=== PATIENT | female | born 1970 | race Caucasian/White ===

== ENCOUNTER 2017-01-12 12:12 | Emergency (ER) | payer OTHER ==
[~2017-01-12] VITALS: Ht 170.2 cm; Wt 85.8 kg
[~2017-01-12 12:12] MED LIST: AMOXICILLIN; COUMADIN,JANTO7.5 MG; COUMADIN,JANTOVE5 MG; EYE DROPS
[2017-01-12 13:20] LABS: MCH 31.4 PG (29.0-34.0); MCHC 34.3 G/DL (30.0-36.0); MCV 91.7 FL (83-99); MEAN PLAT.VOLUME 9.6 uM^3 (9.5-12.4); PLATELET COUNT 270 K/uL (156-360); RBC DIS.WIDTH-CV 12.1 % (11.8-14.6); RBC DIS.WIDTH-SD 40.7 % (39-53); RED BLOOD COUNT 4.58 M/uL (3.80-5.20); WHITE BLOOD COUNT 10.5 K/uL (4.1-10.2)
[2017-01-12 13:25] LABS: ADD MIUA? YES; BILIRUBIN NEGATIVE; BLOOD MODERATE; COLOR YELLOW ((YELLOW)); GLUCOSE (STRIP) NEGATIVE; KETONES NEGATIVE; LEUKOCYTES NEGATIVE; NITRITE NEGATIVE; PROTEIN (STRIP) NEGATIVE; SPECIFIC GRAVITY 1.011 (1.000-1.030); UROBILINOGEN 0.2 MG/DL (0.2-1.0)
[2017-01-12 13:30] LABS: BACTERIA RARE /HPF; EPITHELIAL CELLS RARE /HPF; MUCUS TRACE /LPF; RED BLOOD CELLS 0-5 /HPF (0-5); UCUL ADDED? NO; WHITE BLOOD CELLS 0-5 /HPF (0-5)
[2017-01-12 13:33] LABS: INTER. NORMALIZED RATIO 3.3; PROTHROMBIN TIME 34.7 (9.2-11.2)
[2017-01-12 13:34] LABS: CHLORIDE 106 mEq/L (99-109); POTASSIUM 3.7 mEq/L (3.7-5.4); SODIUM 140 mEq/L (136-147)
[2017-01-12 13:36] LABS: GLUCOSE 105 mg/dL (70-99)
[2017-01-12 13:38] LABS: ANION GAP 8 MEQ/L (2-14); TOTAL BILIRUBIN 0.3 mg/dL (0.0-1.0)
[2017-01-12 13:40] LABS: ALKALINE PHOSPHATASE 67 IU/L (3-129); GFR ESTIMATE (CALCULATED) > 59 mL/min/
[2017-01-12 13:41] LABS: UREA NITROGEN (BUN) 17 mg/dL (9-23)
[2017-01-12 13:49] LABS: QUANTITATIVE HCG < 4.0 MIU/ML
[2017-01-12] MEDS ORDERED: NORCO 5/3251 TABLET PO (16:56)
[2017-01-12 17:13] VITALS: BP 126/68
== END 2017-01-12 17:13 | disposition home or self-care (01) ==
LOC: EME 12:12
PROVIDERS: Physician Assistant
DX: R10.30 Lower abdominal pain, unspecified (principal); K43.9 Ventral hernia without obstruction or gangrene; K57.30 Diverticulosis of large intestine without perforation or abscess without bleeding; K76.0 Fatty (change of) liver, not elsewhere classified; D66 Hereditary factor VIII deficiency; Z90.710 Acquired absence of both cervix and uterus; Z90.49 Acquired absence of other specified parts of digestive tract; Z86.711 Personal history of pulmonary embolism; Z86.718 Personal history of other venous thrombosis and embolism; Z79.01 Long term (current) use of anticoagulants; Z87.891 Personal history of nicotine dependence
CPT/HCPCS: 74174; 80053; 81003; 84702; 85027; 85610; 85730; 99281; 99284; J3010; J7030